=== PATIENT | female | born 1970 | race Hispanic/Latino ===

== ENCOUNTER 2018-09-12 20:05 | Inpatient (IN) | payer SELFPAY, OTHER | END 2018-09-15 13:17 | disposition home or self-care (01) | LOC: EDH 20:05 → 4BH 09-13 00:07 → EDHIP 20:06 | DX: J18.9 Pneumonia, unspecified organism (principal); J96.01 Acute respiratory failure with hypoxia; N39.0 Urinary tract infection, site not specified; Z68.43 Body mass index [BMI] 50.0-59.9, adult; E66.01 Morbid (severe) obesity due to excess calories; E87.6 Hypokalemia; I51.7 Cardiomegaly; I11.9 Hypertensive heart disease without heart failure ==